=== PATIENT | female | born 1990 | race Caucasian/White ===

== ENCOUNTER 2017-10-13 20:03 | Emergency (ER) | payer OTHER, MEDICAID ==
[2017-10-13] MEDS ORDERED: ULTRAM PO ONE (21:54)
[2017-10-13 23:32] VITALS: BP 108/74
--- NOTE | 2017-10-13 23:41 | Emergency Department Report ---
Minor Respiratory - HPI Chief Complaint: Sore Throat Stated Complaint: SORE THROAT Time Seen by Provider: 10/13/17 20:27 Duration: 7 days Pain Location: Throat Severity: severe Minor Respiratory: Yes Rhinorrhea, Yes Sore Throat, Yes Able to Tolerate Fluids , Yes Cough, Yes Fever, No Ear Pain, No Sick Contacts, No Hemoptysis, No Chest Pain, No Shortness of Breath Other History: This is a 27 y.o. female presenting with sore throat for 7 days. Patient states she is having difficulty swallowing. She is taking tylenol to control fever. Pain is 8/10. Admits to congestion, sore throat, and fever. Denies SOB, weakness, and chest pain. ED Review of Systems ROS: Stated complaint: SORE THROAT Other details as noted in HPI Constitutional: no symptoms reported, see HPI, fever. denies: chills, diaphoresis, malaise, weakness Eyes: as per HPI. denies: eye pain, eye discharge, vision change ENT: as per HPI, throat pain, congestion. denies: ear pain, dental pain, hearing loss, epistaxis Respiratory: no symptoms reported, see HPI, cough. denies: orthopnea, shortness of breath, SOB with exertion, SOB at rest, stridor, wheezing Cardiovascular: as per HPI. denies: chest pain, palpitations, dyspnea on exertion, orthopnea, edema, syncope, paroxysmal nocturnal dyspnea Neurological: as per HPI. denies: headache, weakness, numbness, paresthesias, confusion, abnormal gait, vertigo, other Psychiatric: as per HPI. denies: anxiety, depression, auditory hallucinations, visual hallucinations, homicidal thoughts, suicidal thoughts ED Past Medical Hx - Past Medical History Previous Medical History?: No - Surgical History Additional Surgical History: C/S - Social History Smoking Status: Never Smoker Substance Use Type: None - Medications Home Medications: Home Medications Medication Instructions Recorded Confirmed Last Taken Type Ibuprofen 800 mg PO Q6HR 7 Days #28 tablet 10/13/17 Unknown Rx Prednisone [predniSONE 5 mg (6-Day 5 mg PO .TAPER #1 tab.ds.pk 10/13/17 Unknown Rx Pack, 21 Tabs)] Minor Respiratory Exam - Exam General: Vital signs noted. No distress. Alert and acting appropriately. HEENT: Yes Pharyngeal Erythema, Yes Moist Mucous Membranes, Yes Rhinorrhea, No Pharyngeal Exudates, No Conjuctival Injection, No Frontal Tenderness, No Maxillary Tenderness Ear: Neither TM Bulge, Neither TM Erythema, Neither EAC Pain, Neither EAC Discharge Neck: Yes Supple, No Adenopathy Lungs: Yes Cough, No Good Air Exchange, No Wheezes, No Ronchi, No Stridor, No Labored Respirations, No Retractions, No Use of Accessory Muscles, No Other Abnormal Lung Sounds Heart: Yes Regular, No Murmur Abdomen: Yes Normal Bowel Sounds, No Tenderness, No Peritoneal Signs Skin: No Rash, No Edema Neurologic: Alert and oriented, no deficits. Musculoskeletal: Unremarkable. ED Course Vital Signs 10/13/17 10/13/17 20:14 22:05 Temperature 99.2 F Pulse Rate 97 H Respiratory 18 18 Rate Blood Pressure 113/78 O2 Sat by Pulse 98 Oximetry Critical care attestation.: If time is entered above; I have spent that time in minutes in the direct care of this critically ill patient, excluding procedure time. ED Disposition Clinical Impression: Sore throat URI (upper respiratory infection) Qualifiers: URI type: acute laryngopharyngitis Qualified Code(s): J06.0 - Acute laryngopharyngitis Disposition: DC-01 TO HOME OR SELFCARE Is pt being admited?: No Does the pt Need Aspirin: No Condition: Stable Instructions: Upper Respiratory Infection (ED) Additional Instructions: Increase fluids. Rest Wash hands frequently. Prescriptions: Ibuprofen 800 mg PO Q6HR 7 Days #28 tablet Prednisone [predniSONE 5 mg (6-Day Pack, 21 Tabs)] 5 mg PO .TAPER #1 tab.ds.pk Referrals: PRIMARY CARE, [Primary Care Provider] - 3-5 Days [facility] [Outside] - 3-5 Days [facility] [Outside] - 3-5 Days Time of Disposition: 23:48 Print Language: FRISIAN
== END 2017-10-14 00:11 | disposition home or self-care (01) ==
LOC: ED 20:03
DX: J06.0 Acute laryngopharyngitis (principal)
CPT/HCPCS: 87116; 87430; 99282